=== PATIENT | female | born 1985 | race Caucasian/White ===

== ENCOUNTER 2017-09-07 05:38 | Day surgery (SDC) | END 2017-09-07 11:19 | disposition home or self-care (01) ==

== ENCOUNTER 2018-10-17 05:25 | Day surgery (SDC) | payer OTHER ==
[2018-10-17] VITALS (13 sets, daily range): BP systolic 94–115; BP diastolic 53–65; PULSE 50–65; RESP 9–18; Ht 157.5 cm; Wt 74.7 kg
[~2018-10-17] VITALS: Ht 157.5 cm; Wt 74.7 kg
[~2018-10-17 05:25] MED LIST: CARB200T3 PO; CARB400T PO; IBUP-1545 PO
[2018-10-17] MEDS ORDERED: CEFAZOLIN 2 GM/50 ML (PMX) 50 ML IVPB ONE (06:00)
[2018-10-17] MEDS ORDERED: LACTATED RINGER'S 1,000 ML IV SCH (06:30)
[2018-10-17] MEDS ORDERED: POLYMYXIN/BACITRACIN 1L IRRIG ONE (07:17)
[2018-10-17] MEDS ORDERED: BUPIVACAINE 0.5% (SDV) 30 ML INJ ONE (07:17)
[2018-10-17] MEDS ORDERED: MIDAZOLAM 1 MG/ML 2 ML INJ ONE (07:33)
[2018-10-17] MEDS ORDERED: FENTAnyl 50 MCG/ML VIAL ONE ×2 (07:33→09:04)
[2018-10-17] MEDS ORDERED: DESFLURANE 15 MIN ONE (07:50)
[2018-10-17] MEDS ORDERED: PROPOFOL 20 ML ONE (07:52)
[2018-10-17] MEDS ORDERED: ONDANSETRON 4 MG INJ ONE (07:52)
[2018-10-17] MEDS ORDERED: LIDOCAINE 2% (SDV) 5 ML INJ ONE (07:52)
[2018-10-17] MEDS ORDERED: DEXAMETHASONE 4 MG/ML 5 ML INJ ONE (07:52)
[2018-10-17] MEDS ORDERED: FAMOTIDINE 20 MG INJ ONE (07:52)
[2018-10-17] MEDS ORDERED: LIDOCAINE 2% (MDV) 20 ML INJ ONE (08:19)
[2018-10-17] MEDS: FENTAnyl 50 MCG/ML VIAL IV PRN ×2 (09:12→09:42)
[2018-10-17] MEDS ORDERED: FENTAnyl 50 MCG/ML VIAL IV PRN (09:30)
[2018-10-17] MEDS ORDERED: ONDANSETRON 4 MG INJ IV PRN (09:30)
[2018-10-17] MEDS ORDERED: KETOROLAC 30 MG INJ IV PRN (09:30)
[2018-10-17] MEDS ORDERED: HYDROmorphONE 1 MG/5 ML IV SYRINGE IV PRN ×2 (09:30)
[2018-10-17] MEDS ORDERED: OXYCODONE/ACETAMINOPHEN (5/325) TAB PO PRN (09:30)
[2018-10-17] MEDS ORDERED: CEFAZOLIN 1 GM INJ ONE (10:17)
== END 2018-10-17 13:25 | disposition home or self-care (01) ==
LOC: SDS 05:25
PROVIDERS: ATTEND Podiatrist Foot & Ankle Surgery
DX: M21.611 Bunion of right foot (principal)
CPT/HCPCS: 73630; 88304; 88311; J0690; J1100; J2250; J2405; J3010